=== PATIENT | male | born 1955 | race Caucasian/White ===

== ENCOUNTER 2017-03-25 06:12 | Observation (INO) | payer BC ==
[~2017-03-25] VITALS: Ht 160 cm; Wt 79.5 kg
[~2017-03-25 06:12] MED LIST: ALEVE220 MG PO; ASAB PO; DSS PO; IMDUR30 PO; L20 PO; LIPITOR10 PO; LIPITOR20 PO; LIPITOR40 PO; LOP25 PO; Lipitor PO; MICRO-K10 MEQ PO; NITROSTAT0.4 MG SL; NORCO1 TA1 PO; NORV25 PO; PRILO PO; PRIN5 PO; T PO; TUMSROLL PO; ZANTAC 75 PO
[2017-03-25 06:47] LABS: BASOPHILS 0.4 %; BASOPHILS ABSOLUTE 0.03 10/3/uL (0.0-0.16); EOSINOPHILS 5.3 %; EOSINOPHILS ABSOLUTE 0.38 10/3/uL (0.0-0.53); HEMATOCRIT 44.1 % (40.0-51.0); HEMOGLOBIN 14.6 g/dL (13.6-17.8); IMMATURE GRANULOCYTES 0.3 %; IMMATURE GRANULOCYTES ABSOLUTE 0.02 10/3/uL (0.0-0.11); LYMPHOCYTES 30.3 %; LYMPHOCYTES ABSOLUTE 2.18 10/3/uL (0.67-4.30); MANUAL DIFF NO %; MEAN CORPUS HGB CONC 33.1 g/dL (32.0-36.0); MEAN CORPUSCULAR HEMOGLOB 30.7 pg (26.0-34.0); MEAN CORPUSCULAR VOLUME 92.8 fL (80-100); MEAN PLATELET VOLUME 9.5 fL (9.2-13.0); MONOCYTES ABSOLUTE 0.79 10/3/uL (0.21-1.20); NEUTROPHILS 52.7 %; PLATELET COUNT 256 10/3/uL (150-400); RED CELL COUNT 4.75 10/6/uL (4.7-6.1); WHITE BLOOD CELLS 7.2 10/3/uL (4.5-10.5)
[2017-03-25 07:01] LABS: CALCIUM, SERUM 8.5 MG/DL (8.5-10.4); CHLORIDE, SERUM 107 MMOL/L (96-112); CHOL/HDL RATIO(NOT ORDER) 3.9 (0-5); CHOLESTEROL 165 MG/DL (< 200); CO2 (CARBON DIOXIDE) 28 MMOL/L (24-34); CREATININE 1.08 MG/DL (0.70-1.30); GFR AFRICAN AMERICAN 85 ML/MIN (>=60); GFR NON AFRICAN AMERICAN 74 ML/MIN (>=60); GLUCOSE, SERUM 96 MG/DL (60-99); HDL CHOLESTEROL 42 MG/DL (> 39); LDL CHOLESTEROL 101 MG/DL (< 130); NON-HDL CHOLESTEROL 123 MG/DL (< 160); POTASSIUM, SERUM 4.2 MMOL/L (3.5-5.3); SODIUM, SERUM 141 MMOL/L (135-148); TRIGLYCERIDE 110 MG/DL (< 150)
[2017-03-25 07:02] LABS: BUN (BLOOD UREA NITROGEN) 25 MG/DL (6-23)
[2017-03-26] MEDS ORDERED: EFFIENT10 PO (09:37)
== END 2017-03-26 10:51 | disposition home or self-care (01) ==
LOC: CORLMH 06:12 → SSU1 06:18 → CORLMH 06:35 → SSU1 06:35 → CORLMH 07:30 → SSU1 03-26 10:51 → CORLMH 04-08 07:30
PROVIDERS: Internal Medicine Cardiovascular Disease
DX: I25.118 Atherosclerotic heart disease of native coronary artery with other forms of angina pectoris (principal); I10 Essential (primary) hypertension; E78.2 Mixed hyperlipidemia; G47.33 Obstructive sleep apnea (adult) (pediatric); Z87.891 Personal history of nicotine dependence; Z79.82 Long term (current) use of aspirin; Z79.899 Other long term (current) drug therapy; Z90.49 Acquired absence of other specified parts of digestive tract; Z95.1 Presence of aortocoronary bypass graft
CPT/HCPCS: 80048; 80061; 85025; 85347; 93005; 93459; 96374; 99152; 99153; A9270-GY; C1725; C1769; C1874; C1887; C1894; C9604; G0378; J0583; J2250; J3010; Q9967